=== PATIENT | female | born 1950 | race Caucasian/White ===

== ENCOUNTER → 2016-12-02 | Outpatient (CLI) | payer MEDICARE | END | disposition home or self-care (01) | LOC: RAD.S 11-30 11:53 → PTH.S 09:00 → RAD.S 09:03 | DX: R26.9 Unspecified abnormalities of gait and mobility (principal); R29.91 Unspecified symptoms and signs involving the musculoskeletal system ==

== ENCOUNTER → 2017-01-13 | Outpatient (CLI) | payer MEDICARE | END | disposition home or self-care (01) | LOC: RAD.S 01-12 13:12 | DX: R32 Unspecified urinary incontinence (principal); R29.898 Other symptoms and signs involving the musculoskeletal system ==